=== PATIENT | male | born 1945 | race American Indian/Alaskan Native ===

== ENCOUNTER 2016-12-26 09:08 | Day surgery (SDC) | payer MEDICARE ==
[2016-12-19 08:50] VITALS: BMI 25.2
[2016-12-26] MEDS ORDERED: Propofol 10 mg/ml Inj (20 ML) ONE (09:47)
[2016-12-26] MEDS ORDERED: Sodium Chloride 0.9% 1,000 ML IV SCH (10:30)
[2016-12-26 11:08] VITALS: RESP 16
[2016-12-26 12:10] VITALS: BP 138/75; TEMP 97.7
[2016-12-26 12:11] VITALS: PULSE 57; O2SAT 100
== END 2016-12-26 12:03 | disposition home or self-care (01) ==
LOC: ENDO 09:08
PROVIDERS: ATTEND Specialist
DX: Z12.11 Encounter for screening for malignant neoplasm of colon (principal); D12.2 Benign neoplasm of ascending colon; D12.3 Benign neoplasm of transverse colon; K62.1 Rectal polyp; K57.30 Diverticulosis of large intestine without perforation or abscess without bleeding; K64.8 Other hemorrhoids; I10 Essential (primary) hypertension; I73.9 Peripheral vascular disease, unspecified; N40.0 Benign prostatic hyperplasia without lower urinary tract symptoms
CPT/HCPCS: 45380; 45385; 88305; J2001; J2704; J7040 ×2

== ENCOUNTER 2018-10-24 10:59 | Outpatient (CLI) | payer MEDICARE | END 2018-10-24 11:00 | disposition home or self-care (01) | LOC: RAD 10:59 ==